=== PATIENT | male | born 1980 | race Caucasian/White ===

== ENCOUNTER 2023-06-03 14:28 | Emergency (ER) | payer OTHER ==
[~2023-06-03] VITALS: Ht 177.8 cm; Wt 88.0 kg
[2023-06-03 14:47] VITALS: BP 184/105; PULSE 72; RESP 19; TEMP 98.5; O2SAT 99
[2023-06-03] MEDS ORDERED: IBUP-2029 MT (15:58)
[2023-06-03] MEDS ORDERED: SULF1TAB48 MT (16:19)
[2023-06-03] MEDS ORDERED: BO1 TP (16:19)
[2023-06-03] MEDS ORDERED: CEPH500T MT (16:19)
[2023-06-03] MEDS: TETANUS, DIPHTHERIA, PERTUSSIS VAC/PF 0.5ML (>10YR OLD) IM ONE (16:24)
[2023-06-03] MEDS: BACITRACIN ZINC OINT UDPKT TOP ONE (16:26)
== END 2023-06-03 17:05 | disposition home or self-care (01) ==
LOC: ER 14:28
DX: S61.303A Unspecified open wound of left middle finger with damage to nail, initial encounter (principal); G89.11 Acute pain due to trauma; X58.XXXA Exposure to other specified factors, initial encounter; Y93.89 Activity, other specified; Y92.89 Other specified places as the place of occurrence of the external cause; Y99.8 Other external cause status
CPT/HCPCS: 29130; 73140; 90471; 90715; 99283